=== PATIENT | male | born 1940 | race Caucasian/White ===

== ENCOUNTER → 2016-10-12 | Outpatient (CLI) | payer MEDICARE, OTHER ==
--- NOTE | 2016-10-12 12:50 | PCVCIMAG ---
APPROVED REPORT Study performed: 10/12/2016 08:40:17 EXAM: Comprehensive 2D, Doppler, and color-flow Echocardiogram Patient Location: Echo lab Other Information Study Quality: Fair 2D Dimensions IVSd: 6.13 (7-11mm)LVOT Diam: 24.32 (18-24mm) LVDd: 64.05 mm PWd: 9.64 (7-11mm)Ascending Ao: 34.13 (22-36mm) LVDs: 51.35 (25-40mm) Left Atrium: 37.93 (27-40mm) Aortic Root: 27.82 mm LV Single Plane 4CH: 27.83 % LV Single Plane 2CH: 46.68 %Hyman's LVEF: 37.26 % Biplane EF: 36.6 % Volumes Left Atrial Volume (Systole) Single Plane 4CH: 26.15 mLSingle Plane 2CH: 46.67 mL LA ESV Index: 16.00 mL/m2 Aortic Valve AoV Peak Tobin.: 1.11 m/s AO Peak Gr.: 5.65 mmHgLVOT Max P.98 mmHg LVOT Max V: 0.79 m/s DIXON Vmax: 3.31 cm2 Mitral Valve E/A Ratio: 0.9 MV E Max Tobin.: 0.84 m/s MV A Tobin.: 0.90 m/s Tricuspid Valve TR Peak Tobin.: 2.33 m/s TR Peak Gr.: 21.80 mmHg Left Ventricle Left ventricle is moderately dilated. Anterolateral and apical akinesis There is normal left ventricular wall thickness. Left ventricular ejection fraction is severely decreased. LVEF is 30-35%. This study is not technically sufficient to allow evaluation of the LV diastolic function. Right Ventricle Right ventricle is grossly normal in size. The right ventricular systolic function is normal. Pacemaker lead is present in the right ventricle. Atria The left atrium size is normal. The right atrium size is normal. Aortic Valve The aortic valve is normal in structure. No aortic regurgitation is present. There is no aortic valvular stenosis. Mitral Valve The mitral valve is normal in structure. Mild mitral regurgitation. No evidence of mitral valve stenosis. Tricuspid Valve The tricuspid valve is normal in structure. Trace tricuspid regurgitation. Pulmonary artery pressure 29mmhg Pulmonic Valve The pulmonary valve is normal in structure. There is no pulmonic valvular regurgitation. Great Vessels The aortic root is normal in size. IVC is normal in size and collapses with >50% inspiration Pericardium There is no pericardial effusion. <Conclusion> Left ventricular ejection fraction is severely decreased. Anterolateral and apical akinesis. LVEF 30-35%. The aortic valve is normal in structure. There is no aortic valvular stenosis or insufficiency The mitral valve is normal in structure. Mild mitral regurgitation. Trace tricuspid regurgitation. Pulmonary artery pressure 29mmhg There is no pericardial effusion. ICD wires in right heart
== END | disposition home or self-care (01) ==
LOC: PCVCIMAG 08:24
PROVIDERS: ATTEND Internal Medicine
DX: I08.1 Rheumatic disorders of both mitral and tricuspid valves (principal); I65.23 Occlusion and stenosis of bilateral carotid arteries; I25.10 Atherosclerotic heart disease of native coronary artery without angina pectoris; I48.0 Paroxysmal atrial fibrillation; E78.00 Pure hypercholesterolemia, unspecified; E78.2 Mixed hyperlipidemia; Z95.9 Presence of cardiac and vascular implant and graft, unspecified; Z79.01 Long term (current) use of anticoagulants; Z89.419 Acquired absence of unspecified great toe; Z87.891 Personal history of nicotine dependence; Z79.82 Long term (current) use of aspirin; Z79.899 Other long term (current) drug therapy
CPT/HCPCS: 80061; 93005; 93306; G0463

== ENCOUNTER → 2017-10-20 | Outpatient (CLI) | payer MEDICARE | END | disposition home or self-care (01) | LOC: PCVCCLINIC 11:29 | DX: I25.119 Atherosclerotic heart disease of native coronary artery with unspecified angina pectoris (principal); I25.5 Ischemic cardiomyopathy; I48.2 Chronic atrial fibrillation; I65.23 Occlusion and stenosis of bilateral carotid arteries; E78.5 Hyperlipidemia, unspecified; Z95.9 Presence of cardiac and vascular implant and graft, unspecified; Z79.01 Long term (current) use of anticoagulants; Z88.0 Allergy status to penicillin; Z88.8 Allergy status to other drugs, medicaments and biological substances; Z87.891 Personal history of nicotine dependence; Z79.899 Other long term (current) drug therapy | CPT/HCPCS: 80061; 93005; G0463 ==

== ENCOUNTER → 2017-11-27 | Outpatient (CLI) | payer MEDICARE ==
[~2017-11-27] MED LIST: REGADENOSON 0.4 MG/5 ML DISP.SYRIN. IV
== END | disposition home or self-care (01) ==
LOC: PCVCIMAG 09:54
DX: I08.1 Rheumatic disorders of both mitral and tricuspid valves (principal); I25.10 Atherosclerotic heart disease of native coronary artery without angina pectoris; I25.5 Ischemic cardiomyopathy; I48.91 Unspecified atrial fibrillation
CPT/HCPCS: 78452; 93017; 93306; A9500; J2785

== ENCOUNTER → 2018-04-04 | Outpatient (CLI) | payer MEDICARE | END | disposition home or self-care (01) | LOC: PCVCCLINIC 11:01 | PROVIDERS: ATTEND Internal Medicine | DX: Z45.02 Encounter for adjustment and management of automatic implantable cardiac defibrillator (principal); I25.119 Atherosclerotic heart disease of native coronary artery with unspecified angina pectoris; I48.1 Persistent atrial fibrillation; I25.5 Ischemic cardiomyopathy; Z79.82 Long term (current) use of aspirin; Z87.891 Personal history of nicotine dependence | CPT/HCPCS: 93005; 93283; G0463 ==

== ENCOUNTER → 2018-08-20 | Outpatient (CLI) | payer MEDICARE ==
--- NOTE | 2018-08-20 09:13 | PCVCIMAG ---
APPROVED REPORT Study performed: 08/20/2018 08:22:39 EXAM: Comprehensive 2D, Doppler, and color-flow Echocardiogram Patient Location: Echo lab Status: routine BSA: 2.02 HR: 85 bpmBP: 110/70 mmHg Rhythm: NSR Other Information Study Quality: Technically Difficult Risk Factors: Cardiac Risk Factors: HTN, Hyperlipidemia Indications Atrial Fibrillation Ischemic cardiomyopathy, AICD 2D Dimensions IVSd: 8.41 (7-11mm)LVOT Diam: 19.68 (18-24mm) LVDd: 59.33 mm PWd: 7.53 (7-11mm)Ascending Ao: 34.41 (22-36mm) LVDs: 53.52 (25-40mm) Left Atrium: 45.05 (27-40mm) Aortic Root: 30.57 mm LV Single Plane 4CH: 44.75 % LV Single Plane 2CH: 40.26 % Biplane EF: 42.9 % Volumes Left Atrial Volume (Systole) Single Plane 4CH: 66.11 mLSingle Plane 2CH: 98.69 mL LA ESV Index: 43.00 mL/m2 Aortic Valve AoV Peak Tobin.: 1.26 m/s AO Peak Gr.: 8.08 mmHgLVOT Max P.73 mmHg LVOT Max V: 0.91 m/s DIXON Vmax: 2.18 cm2 Mitral Valve E/A Ratio: 0.9 MV Decel. Time: 412.09 ms MV E Max Tobin.: 0.90 m/s MV A Tobin.: 0.98 m/s Pulmonary Valve PV Peak Gr.: 1.80 mmHg Tricuspid Valve TR Peak Tobin.: 2.54 m/s TR Peak Gr.: 34.84 mmHg Left Ventricle Left ventricle is dilated. There is normal left ventricular wall thickness. Left ventricular systolic function is moderate to severely decreased. Akinesis of septum, anterolateral resendiz, and apex. LVEF is 35%. This study is not technically sufficient to allow evaluation of the LV diastolic function due to atrial fibrillation. Right Ventricle The right ventricle is normal size. The right ventricular systolic function is normal. Device lead is present in the right ventricle. Atria The left atrium size is normal. The right atrium size is normal. Pacemaker lead is present in the right atrium. Aortic Valve The aortic valve is not well visualized. No aortic regurgitation is present. There is no aortic valvular stenosis. Mitral Valve The mitral valve is normal in structure. Mild mitral regurgitation. No evidence of mitral valve stenosis. Tricuspid Valve The tricuspid valve is normal in structure. Trace tricuspid regurgitation. Pulmonary artery pressure is 40mmHg. Pulmonic Valve The pulmonary valve is normal in structure. There is no pulmonic valvular regurgitation. Great Vessels The aortic root is normal in size. IVC is normal in size and collapses >50% with inspiration. Pericardium There is no pericardial effusion. <Conclusion> Left ventricular systolic function is moderate to severely decreased. Akinesis of septum, anterolateral resendiz, and apex. LVEF is 35%. The aortic valve is not well visualized. No aortic regurgitation or stenosis. The mitral valve is normal in structure. Mild mitral regurgitation. Trace tricuspid regurgitation. Pulmonary artery pressure is 40mmHg. ICD wires in right heart There is no pericardial effusion.
== END | disposition home or self-care (01) ==
LOC: PCVCIMAG 08:08
PROVIDERS: ATTEND Internal Medicine
DX: I34.0 Nonrheumatic mitral (valve) insufficiency (principal); I48.91 Unspecified atrial fibrillation; I25.119 Atherosclerotic heart disease of native coronary artery with unspecified angina pectoris; I25.5 Ischemic cardiomyopathy; I48.1 Persistent atrial fibrillation; I10 Essential (primary) hypertension; E78.5 Hyperlipidemia, unspecified; G47.33 Obstructive sleep apnea (adult) (pediatric); Z79.01 Long term (current) use of anticoagulants; Z95.9 Presence of cardiac and vascular implant and graft, unspecified; Z87.891 Personal history of nicotine dependence
CPT/HCPCS: 36415; 80061; 93005; 93284; 93306; G0463

== ENCOUNTER → 2018-12-11 | Outpatient (CLI) | payer MEDICARE | END | disposition home or self-care (01) | LOC: PCVCCLINIC 10:00 | PROVIDERS: ATTEND Internal Medicine | DX: I25.119 Atherosclerotic heart disease of native coronary artery with unspecified angina pectoris (principal); I25.5 Ischemic cardiomyopathy; I48.1 Persistent atrial fibrillation; I10 Essential (primary) hypertension; E78.5 Hyperlipidemia, unspecified; G47.33 Obstructive sleep apnea (adult) (pediatric); E78.00 Pure hypercholesterolemia, unspecified; Z79.01 Long term (current) use of anticoagulants; Z95.9 Presence of cardiac and vascular implant and graft, unspecified | CPT/HCPCS: 93005; G0463 ==